=== PATIENT | male | born 1955 | race Caucasian/White ===

== ENCOUNTER 2020-10-22 14:40 | Emergency (ER) | payer MEDICARE, OTHER ==
[~2020-10-22] VITALS: Ht 170 cm; Wt 104.0 kg
[2020-10-22] MEDS ORDERED: LOSARTIN (15:44)
[2020-10-22] MEDS ORDERED: ALLOPURINOL (15:44)
[2020-10-22] MEDS ORDERED: NEXIUM (15:44)
[2020-10-22] MEDS ORDERED: RITALIN (15:44)
--- NOTE | 2020-10-22 15:54 | ED Cough/URI ---
General Chief Complaint: Cough/Cold/Flu Symptoms Stated Complaint: COVID + Nursing Triage Note: PT TO ED W/ C/O POSITIVE COVID TEST YESTERDAY W/ SYMPTOMS ONSET SATURDAY. REPORTS COUGH, CONGESTION, NAUSEA, DIZZINESS. Sepsis Screen: No Definite Risk Source: patient Exam Limitations: no limitations History of Present Illness Date Seen by Provider: Oct 22, 2020 Time Seen by Provider: 15:51 Initial Comments To ER with reports of a positive Covid test yesterday and became symptomatic on 10/18/2020 with reports of slight cough and GI upset. His is also positive. He is otherwise healthy. Timing/Duration: constant, getting worse Severity/Quality: moderate Associated Symptoms: cough Allergies and Home Medications Allergies Coded Allergies: No Known Drug Allergies (Unverified , 10/22/20) Patient Home Medication List Home Medication List Reviewed: Yes Review of Systems Review of Systems Constitutional: see HPI EENTM: see HPI Respiratory: see HPI, cough Cardiovascular: no symptoms reported Genitourinary: no symptoms reported Musculoskeletal: no symptoms reported Skin: no symptoms reported Psychiatric/Neurological: No Symptoms Reported Hematologic/Lymphatic: No Symptoms Reported Past Wgpsrsb-Tamcnv-Ougdcj Hx Patient Social History Alcohol Use: Denies Use Recreational Drug Use: No Smoking Status: Never a Smoker Recent Foreign Travel: No Contact w/Someone Who Travel: No Recent Infectious Disease Expo: No Recent Hopitalizations: No Physical Abuse: No Sexual Abuse: No Mistreated: No Fear: No Past Medical History Respiratory: No Cardiac: Yes Hypertension Neurological: No Genitourinary: No Gastrointestinal: No Musculoskeletal: No Endocrine: No HEENT: No Cancer: No Psychosocial: Yes ADD/ADHD Integumentary: No Physical Exam Vital Signs - First Documented 10/22/20 15:26 Temp 36.6 Pulse 98 Resp 20 B/P (MAP) 142/93 (109) Pulse Ox 99 O2 Delivery Room Air Capillary Refill : Less Than 3 Seconds Height: '" Weight: lbs. oz. kg; 35.00 BMI Method: General Appearance: WD/WN, no apparent distress, other (He is 97% on room air on arrival) Eyes: Bilateral Eye Normal Inspection, Bilateral Eye PERRL, Bilateral Eye EOMI HEENT: PERRL/EOMI, normal ENT inspection Neck: non-tender, full range of motion Respiratory: no respiratory distress, no accessory muscle use Gastrointestinal: normal bowel sounds, non tender Extremities: normal range of motion, normal inspection Neurologic/Psychiatric: alert, normal mood/affect, oriented x 3 Skin: normal color, warm/dry Progress/Results/Core Measures Suspected Sepsis Recent Fever Within 48 Hours: Yes Infection Criteria Present: None New/Unexplained Altered Menta: No Sepsis Screen: No Definite Risk SIRS Temperature: Pulse: 98 Respiratory Rate: 20 Blood Pressure 142 /93 Mean: 109 Results/Orders My Orders Orders - VELMA FOLEY APRN Chest 1 View, Ap/Pa Only (10/22/20 15:49) Vital Signs/I&O 10/22/20 10/22/20 15:26 15:26 Temp 36.6 Pulse 98 Resp 20 B/P (MAP) 142/93 (109) Pulse Ox 99 O2 Delivery Room Air Room Air Capillary Refill : Less Than 3 Seconds Blood Pressure Mean: 109 Diagnostic Imaging Diagonstic Imaging: Xray Comments NAME: FELECIA SANDOVAL [facility] REC#: [id number] PT STATUS: REG ER : 1955 PHYSICIAN: VELMA FOLEY APRN ADMIT DATE: 10/22/20/ER Draft Date of Exam:10/22/20 CHEST 1 VIEW, AP/PA ONLY INDICATION: Covid positive. TIME OF EXAM: 4:03 p.m. COMPARISON: No prior study is available for comparison. FINDINGS: Cardiac pacemaker is in place. There is some questionable minimal patchy infiltrate in the right mid lung field, peripherally. Left lung appears clear. There is no effusion or pneumothorax. IMPRESSION: Questionable minimal patchy right upper lobe infiltrate. Dictated on workstation # [id number] Dict: 10/22/20 1612 Trans: 10/22/[address] [facility] [id number] Interpreted by: EDUAR LISA MD Electronically signed by: Departure Impression Primary Impression: COVID-19 Disposition: 01 HOME, SELF-CARE Condition: Stable Departure-Patient Inst. Decision time for Depature: 15:53 Referrals: RINKU LYLES MD (PCP/Family) Primary Care Physician Patient Instructions: Coronavirus Disease 2019 (COVID-19) Overview Add. Discharge Instructions: 1. The hospital will call you from a #[phone] on Saturday to schedule your Bamlanivimab infusion after it is reviewed by pharmacy. Return to ER for any worsening or other concerns. Scripts [Nexium] No Conflict Check Prov: VELMA FOLEY APRN 10/22/20 [Allopurinol] No Conflict Check Prov: VELMA FOLEY APRN 10/22/20 [Losartin] No Conflict Check Prov: VELMA FOLEY APRN 10/22/20 [Ritalin] No Conflict Check Prov: VELMA FOLEY APRN 10/22/20 VELMA FOLEY APRN Oct 22, 2020 15:54
--- NOTE | 2020-10-22 16:15 | Diagnostic Imaging Report ---
INDICATION: Covid positive. TIME OF EXAM: 4:03 p.m. COMPARISON: No prior study is available for comparison. FINDINGS: Cardiac pacemaker is in place. There is some questionable minimal patchy infiltrate in the right mid lung field, peripherally. Left lung appears clear. There is no effusion or pneumothorax. IMPRESSION: Questionable minimal patchy right upper lobe infiltrate. Dictated by: Dictated on workstation # [id number]
[2020-10-22 16:48] LABS: BASOPHILS % (AUTO) 0 % (0-10); EOSINOPHILS % (AUTO) 0 % (0-10); HEMATOCRIT 44 % (40-54); HEMOGLOBIN 14.2 g/dL (13.3-17.7); LYMPHOCYTES # (AUTO) 1.5 10^3/uL (1.0-4.0); LYMPHOCYTES % (AUTO) 22 % (12-44); MEAN CORPUSCULAR HEMOGLOBIN 30 pg (25-34); MEAN CORPUSCULAR HGB CONC 32 g/dL (32-36); MEAN CORPUSCULAR VOLUME 93 fL (80-99); MEAN PLATELET VOLUME 9.6 fL (9.0-12.2); MONOCYTES # (AUTO) 1.3 10^3/uL (0.0-1.0); MONOCYTES % (AUTO) 19 % (0-12); NEUTROPHILS % (AUTO) 58 % (42-75); PLATELET COUNT 199 10^3/uL (130-400); WHITE BLOOD COUNT 6.9 10^3/uL (4.3-11.0)
[2020-10-22 16:55] LABS: CHLORIDE 99 MMOL/L (98-107); POTASSIUM 4.4 MMOL/L (3.6-5.0); SODIUM 135 MMOL/L (135-145)
[2020-10-22 16:56] LABS: CALCIUM 8.5 MG/DL (8.5-10.1); GLUCOSE 86 MG/DL (70-105)
[2020-10-22 16:58] LABS: CARBON DIOXIDE 28 MMOL/L (21-32)
[2020-10-22 17:00] LABS: CREATININE SERUM 1.16 MG/DL (0.60-1.30); GFR ESTIMATED > 60
[2020-10-22 17:01] LABS: BUN/CREATININE RATIO 14
[2020-10-22 17:06] LABS: BAND NEUTROPHILS 7 %; BASOPHILS % (MANUAL) 1 %; EOSINOPHILS % (MANUAL) 0 %; LYMPHOCYTES % (MANUAL) 23 %; MONOCYTES % (MANUAL) 23 %; NEUTROPHILS % (MANUAL) 46 %
[2020-10-22 17:07] LABS: ANISOCYTOSIS SLIGHT
[2020-10-22 17:39] VITALS: BP 138/92
--- NOTE | 2020-10-22 17:39 | NUR ---
PT DISCHARGED TO HOME W/ INSTR. UNDERSTANDING VOICED.
== END 2020-10-22 17:39 | disposition home or self-care (01) ==
LOC: EDBD 14:42 → ER 14:42
DX: U07.1 COVID-19 (principal)
CPT/HCPCS: 36415; 71045; 80048; 84145; 85007; 85027; 86141

== ENCOUNTER → 2020-10-24 | Outpatient (CLI) | payer MEDICARE, OTHER ==
[~2020-10-24] MED LIST: ALLOPURINOL; BAMLANIVIMAB 700 MG in NS 200 ML IV ONE; EPINEPHrine INJECTION 1 MG/ML AMP IM PRN; LOSARTIN; NEXIUM; RITALIN; diphenhydrAMINE 50 MG/ML INJ (BENADRYL) IV PRN
[2020-10-24 13:48] VITALS: BP 165/87
[2020-10-24 14:53] VITALS: BP 120/75
[2020-10-24 15:42] VITALS: BP 155/77
== END ==
LOC: INFUSION 13:18
PROVIDERS: ATTEND Nurse Practitioner Family
DX: U07.1 COVID-19 (principal)